=== PATIENT | female | born 1970 | race African-American/Black ===

== ENCOUNTER 2018-06-14 11:00 | Outpatient (CLI) | payer MEDICARE | END 2018-06-14 11:01 | disposition home or self-care (01) | LOC: BICMAMMO 11:00 | PROVIDERS: ATTEND Family Medicine | DX: Z12.31 Encounter for screening mammogram for malignant neoplasm of breast (principal); R92.1 Mammographic calcification found on diagnostic imaging of breast; Z80.3 Family history of malignant neoplasm of breast | CPT/HCPCS: 77063; 77067 ==

== ENCOUNTER 2018-08-02 10:38 | Outpatient (CLI) | payer MEDICARE ==
--- NOTE | 2018-08-02 12:49 | ULT ---
ULTRASOUND HEPATIC DOPPLER DUPLEX: DATE: 08-02-18 HISTORY: Abnormal liver function tests, R94.5 in 48-year-old female. TECHNIQUE: Grayscale images of liver and spleen. Color flow and spectral analysis of major vessels associated with the liver. FINDINGS: Hepatic size and echogenicity are normal. Normal sonographic appearance of the pancreas. No splenomegaly. Gallbladder wall thickness is normal. No gallstones or sludge. No pericholecystic fluid. Common duct caliber 4 mm. No hydronephrosis of right kidney. Hepatopetal flow with appropriate pulse doppler waveforms in the main, left, and right portal veins, and in splenic vein. Hepatic arterial normal pulsatile waveform. Hepatofugal flow with appropriate pulse doppler waveforms in the right, middle, and left hepatic vein s. IMPRESSION: Normal. POS: [facility]
== END 2018-08-02 10:39 | disposition home or self-care (01) ==
LOC: BICULT 10:38
PROVIDERS: ATTEND Internal Medicine Gastroenterology
DX: L98.499 Non-pressure chronic ulcer of skin of other sites with unspecified severity (principal); R94.5 Abnormal results of liver function studies
CPT/HCPCS: 76705

== ENCOUNTER 2018-12-08 15:20 | Outpatient (CLI) | payer MEDICARE ==
--- NOTE | 2018-12-08 18:13 | MRI ---
MRI OF THE ABDOMEN WITHOUT AND WITH CONTRAST: 12/08/18 COMPARISON: Hepatic ultrasound 08/02/18. HISTORY: Abnormal LFTs. TECHNIQUE: Multiplanar and multisequence MRI images were obtained of the abdomen without and with IV contrast. FINDINGS: The liver is normal in signal intensity without focal lesions or intrahepatic ductal dilatation. No b iliary dilatation is seen. The gallbladder is unremarkable. No loss of signal is seen in the liver on [id number] images. The kidneys, adrenal glands, spleen, and pancreas are unremarkable. No ascites is seen. No abdominal adenopathy is seen. No marrow signal abnormality is present. IMPRESSION: Unremarkable exam. POS: [facility]
== END 2018-12-08 15:21 | disposition home or self-care (01) ==
LOC: BICMRI 15:20
PROVIDERS: ATTEND Physician Assistant Medical
DX: Z21 Asymptomatic human immunodeficiency virus [HIV] infection status (principal); R74.8 Abnormal levels of other serum enzymes; R94.5 Abnormal results of liver function studies; M19.90 Unspecified osteoarthritis, unspecified site; R30.0 Dysuria; R68.81 Early satiety; K21.9 Gastro-esophageal reflux disease without esophagitis; K92.1 Melena; E78.00 Pure hypercholesterolemia, unspecified; R21 Rash and other nonspecific skin eruption; R59.0 Localized enlarged lymph nodes; L98.499 Non-pressure chronic ulcer of skin of other sites with unspecified severity; K59.01 Slow transit constipation
CPT/HCPCS: 74183

== ENCOUNTER 2018-12-22 17:07 | Outpatient (CLI) | payer MEDICARE ==
[2018-12-22 17:27] LABS: #Eosinphils 0.1 thou/uL (0.0-0.7); #Lymphocytes 1.3 thou/uL (1.20-3.40); #Monocytes 0.4 thou/uL (0.11-0.59); #Neutrophils 1.1 thou/uL (1.40-6.50); %Basophils 0.2 % (0.0-1.0); %Eosinophils 1.8 % (0.0-10.0); %Lymphocytes 46.6 % (21.0-51.0); %Monocytes 13.4 % (0.0-10.0); Hemoglobin 11.5 g/dL (12.0-16.0); Mean Corpuscular HGB CONC 34.4 g/dL (32.0-36.0); Mean Corpuscular Hemoglobin 33.6 pg (27.0-31.0); Mean Corpuscular Volume 97.8 fL (78.0-98.0); Mean Platelet Volume 6.6 fL (7.4-10.4); Platelet Count 265 thou/uL (130-400); RBC Distribution Width 11.1 % (11.5-14.5); Red Blood Cell (RBC) Count 3.42 mill/uL (4.20-5.40); White Blood Cell (WBC) Count 2.8 thou/uL (4.8-10.8)
[2018-12-22 17:41] LABS: BHCG - Serum Negative (NEGATIVE); Pregs Control Background? CLEAR/WHITE (CLR/WHITE); Pregs Control Bar Appear? YES (CONTROL BAR)
[2018-12-22 17:43] LABS: Anion Gap 11 mmol/L (10-20); BUN (Urea Nitrogen) 16 mg/dL (7.0-18.7); Calc. Creatinine Clearance 0 mL/min (70-130); Calcium 9.6 mg/dL (7.8-10.44); Carbon Dioxide 28 mmol/L (22-29); Chloride 103 mmol/L (98-107); Estimated GFR-MDRD 84; Glucose 86 mg/dL (70-105); Potassium 4.2 mmol/L (3.5-5.1); Sodium 138 mmol/L (136-145)
== END 2018-12-22 17:08 | disposition home or self-care (01) ==
LOC: LABBT 17:07
PROVIDERS: ATTEND Surgery
DX: Z01.812 Encounter for preprocedural laboratory examination (principal); C44.529 Squamous cell carcinoma of skin of other part of trunk
CPT/HCPCS: 80048; 84703; 85025

== ENCOUNTER 2018-12-28 11:26 | Day surgery (SDC) | payer MEDICARE ==
[2018-12-22 17:18] VITALS: BMI 34.8
[2018-12-28] MEDS ORDERED: ceFAZolin Sodium (SDC) 2 GM/100 ML BAG ONE (12:18)
[2018-12-28] MEDS ORDERED: Famotidine/PF 20 mg/2ml Vial ONE (12:29)
[2018-12-28] MEDS ORDERED: Meperidine HCl/PF 25 MG/ML VIAL ONE (12:29)
[2018-12-28] MEDS ORDERED: Fentanyl 100 MCG/2 ML VIAL ONE ×2 (12:29)
[2018-12-28] MEDS ORDERED: Lidocaine 2% PF 5 ML VIAL ONE (12:39)
[2018-12-28] MEDS ORDERED: Bupivacaine HCl 0.5%/Epinephrine 1:200,000/PF 30 ml Vial ONE (12:39)
[2018-12-28] MEDS ORDERED: Levofloxacin 500 mg/D5W 100 ml Premix Bag ONE (12:52)
--- NOTE | 2018-12-28 16:56 | OP ---
DATE OF PROCEDURE: 12/28/2018 PREOPERATIVE DIAGNOSIS: Malignant neoplasm scan, gluteal cleft, perineum, and perianal area. POSTOPERATIVE DIAGNOSIS: Malignant neoplasm scan, gluteal cleft, perineum, and perianal area. PROCEDURE PERFORMED: 1. 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 2. Complex layered closure of wound, 7.5 cm in length. ANESTHESIA: General. ESTIMATED BLOOD LOSS: Minimal. COMPLICATIONS: None. SPECIMEN: The specimen was marked with 2 short superior and one long left and sent to Path for frozen section. Frozen section revealed the margins to be clear. The sharp excision did appear to approach the left-sided margin, so an additional small amount of left margin was performed and sent for final pathology. The wound was irrigated copiously. DESCRIPTION OF PROCEDURE: The patient was taken to the operating room and laid supine on the operating room table. After general anesthetic was obtained, the patient was placed in the prone position. Her perineal area was taped open and then prepped and draped in a sterile fashion. Elliptical incision was performed with a 2.5 cm in greatest diameter excision to include this known malignancy with a gross negative margin. The incision was 7.5 cm in length in order to facilitate proper closure. Extensive undermining was performed to decrease tension on the wound edges. The specimen was marked and sent to Path for frozen, which revealed the margins to be clear. An additional left margin was obtained secondary to the lesion appearing to encroach upon this side. The wound was irrigated. Local anesthetic was applied. Extensive undermining was performed to facilitate closure. The wound was closed in multiple layers using 3-0 Vicryl, 4-0 Monocryl, and Dermabond. The patient was sent to Recovery in stable condition. All instrument counts, needle counts, and lap counts were correct. Job ID: [id number]
[2018-12-28] MEDS ORDERED: Metoclopramide HCl 10 MG/2 ML VIAL ONE (17:17)
[2018-12-28] MEDS ORDERED: PROPOFOL 200 MG/20 ML VIAL ONE (17:17)
[2018-12-28] MEDS ORDERED: Dexamethasone 20 MG/5 ML VIAL ONE (17:17)
[2018-12-28] MEDS ORDERED: Rocuronium Bromide 10 MG/ML (10ML VIAL) ONE (17:17)
[2018-12-28] MEDS ORDERED: ePHEDrine 50 MG/ML VIAL ONE (17:17)
[2018-12-28] MEDS ORDERED: Glycopyrrolate 0.2 MG/ML 5 ML SYRINGE ONE (17:17)
[2018-12-28] MEDS ORDERED: Lidocaine 1% PF 5 ML VIAL ONE (17:17)
[2018-12-28] MEDS ORDERED: Ketorolac Tromethamine 30 MG/ML VIAL ONE (17:17)
[2018-12-28] MEDS ORDERED: Ondansetron PF 4 MG/2 ML Vial ONE (17:17)
== END 2018-12-28 16:32 | disposition home or self-care (01) ==
LOC: SDC 11:26
PROVIDERS: ATTEND Surgery
PROC: 0HB8XZZ Excision of Buttock Skin, External Approach (ICD-10-PCS; principal; 2018-12-28)
DX: C44.529 Squamous cell carcinoma of skin of other part of trunk (principal); Z88.1 Allergy status to other antibiotic agents; Z79.899 Other long term (current) drug therapy
CPT/HCPCS: 88305; 88331; 88332; J0131; J0670; J0690; J1100; J1885; J1956; J2001; J2175; J2405; J2704; J2765; J3010; J3490; S0028

== ENCOUNTER 2019-01-25 11:29 | Outpatient (CLI) | payer MEDICARE ==
--- NOTE | 2019-01-25 13:23 | RAD ---
RIGHT WRIST 3 VIEWS: Date: 01/25/19 HISTORY: Wrist and hand pain, no known injury. FINDINGS: The joint spaces all appear fairly well preserved. No fracture or other bony findings. IMPRESSION: Unremarkable right wrist. POS: [facility]
--- NOTE | 2019-01-25 13:43 | RAD ---
RIGHT HAND THREE VIEWS: 01/25/19 HISTORY: Right hand pain without any known injury. Some minimal arthritic changes of the first metacarpophalangeal joint and interphalangeal joint of th e thumb. Also some minimal joint space narrowing at the PIP joint of the little finger. No bony erosi ve change. Bone mineralization appears normal. IMPRESSION: Minimal arthritic changes of the hand. POS: [facility]
== END 2019-01-25 11:30 | disposition home or self-care (01) ==
LOC: BICRAD 11:29
PROVIDERS: ATTEND Family Medicine
DX: M25.531 Pain in right wrist (principal); M79.641 Pain in right hand; M18.11 Unilateral primary osteoarthritis of first carpometacarpal joint, right hand

== ENCOUNTER 2019-09-25 09:20 | Outpatient (CLI) | payer MEDICARE ==
--- NOTE | 2019-09-25 11:38 | MMO ---
Bilateral MAMMO Bilat Screen [facility]. CLINICAL HISTORY: Patient is 49 years old and is seen for screening. The patient has the following family history of breast cancer: sister, malignant (generic). The patient has no personal history of cancer. VIEWS: The views performed were: bilateral mediolateral oblique with tomosynthesis; bilateral craniocaudal with tomosynthesis; bilateral mediolateral oblique; and left craniocaudal. FILMS COMPARED: The present examination has been compared to prior imaging studies performed at [facility] on 06/26/2011, 07/19/2012, 08/07/2013 and 06/14/2018. This study has been interpreted with the assistance of computer-aided detection. MAMMOGRAM FINDINGS: There are scattered fibroglandular densities. Benign calcifications are noted bilaterally. There are no suspicious masses, suspicious calcifications, or new areas of architectural distortion. IMPRESSION: THERE IS NO MAMMOGRAPHIC EVIDENCE OF MALIGNANCY. A ROUTINE FOLLOW-UP MAMMOGRAM IN 1 YEAR IS RECOMMENDED. THE RESULTS OF THIS EXAM WERE SENT TO THE PATIENT. ACR BI-RADS Category 2 - Benign finding MAMMOGRAPHY NOTE: 1. A negative mammogram report should not delay a biopsy if a dominant of clinically suspicious mass is present. 2. Approximately 10% to 15% of breast cancers are not detected by mammography. 3. Adenosis and dense breasts may obscure an underlying neoplasm. Reported by: KHALIDA PATEL MD Electonically Signed: [id number]
== END 2019-09-25 09:21 | disposition home or self-care (01) ==
LOC: BICMAMMO 09:20
DX: Z12.31 Encounter for screening mammogram for malignant neoplasm of breast (principal); Z80.3 Family history of malignant neoplasm of breast
CPT/HCPCS: 77063; 77067

== ENCOUNTER 2020-06-13 15:13 | Outpatient (CLI) | payer MEDICARE ==
--- NOTE | 2020-06-13 15:34 | RAD ---
Lumbar spine 2 views weightbearing HISTORY: Low back pain and hip pain. FINDINGS: There are 5 lumbar type vertebrae. Pedicles are intact. Very mild leftward convex curvature . Vertebral body heights and AP alignment are maintained. Osteophytosis throughout the lower facets. No acute fracture or dislocation. IMPRESSION : Mild osteoarthritic changes lower lumbar spine. No acute abnormalities are demonstrated.
--- NOTE | 2020-06-13 15:35 | RAD ---
Right hip 2 views HISTORY: Right hip pain. FINDINGS: Mild joint space narrowing, osteophytosis, and subchondral sclerosis. Femoral head contour is maintained. Lateral upsloping of the acetabulum. No acute fracture, dislocation, or aggressive osseous erosions. IMPRESSION : Mild osteoarthritic changes. Congenital shallow acetabulum. No acute osseous abnormalities are demonstrated.
== END 2020-06-13 15:14 | disposition home or self-care (01) ==
LOC: BICRAD 15:13
PROVIDERS: ATTEND Family Medicine
DX: M25.551 Pain in right hip (principal); M54.5 Low back pain; M16.11 Unilateral primary osteoarthritis, right hip; M47.816 Spondylosis without myelopathy or radiculopathy, lumbar region; M24.851 Other specific joint derangements of right hip, not elsewhere classified
CPT/HCPCS: 72100